=== PATIENT | female | born 1995 | race Caucasian/White ===

== ENCOUNTER 2019-05-16 06:17 | Inpatient (IN) ==
[2019-05-16] MEDS ORDERED: OXYTOCIN 30 UNITS/500 ML BAG IV PRN ×3 (06:47→16:50)
--- NOTE | 2019-05-16 06:54 | History & Physical Report ---
Date of Service May 16, 2019 Assessment & Plan (1) Normal labor: IUP at 39 weeks in active labor with elevated BP & proteinuria but no other PIH symptoms. will check PIH labs planning epidural analgesia anticipate vaginal History of Present Illness Primary Care Provider: Chan Sterling DO Patient is a 23 yo who presents with regular contractions since 0300 with bloody show. (-) SPROM GBS (-) uncomplicated but BP elevated to 140/90 initial assessment. 2+ proteinuria. N PIH symptoms. Allergies Allergy/AdvReac Type Severity Reaction Status Date / Time No Known Allergies Allergy Unverified 03/01/19 22:48 Home Medications Home Medications Medication Instructions Recorded Confirmed Type 1 tab PO DAILY 03/01/19 03/01/19 History Patient History Medical History [place] teeth extracted Surgical History Hx of tonsillectomy Family History Grandmother (Paternal) No problems noted. Grandmother (Maternal) Lung cancer Grandmother (Maternal) Breast cancer Social History marital status: Single Feels Safe at Home: Yes Smoking Status: Never smoker Hx Alcohol Use: No Hx Substance Use: No Review of Systems All systems reviewed & are unremarkable except as noted in HPI & below Physical Exam Constitutional: WD/WN, vitals as above Respiratory: normal respiratory effort, lungs clear to auscultation Cardiovascular: RRR, no murmur, no edema Gastrointestinal (Abdomen): normal bowel sounds, soft, nontender, no hepatosplenomegaly Musculoskeletal: +1 pedal edema Genitourinary: OB Exam Abdomen: + vertex, + estimated weight (6-7 pounds) and + regular contractions (every 5 minutes) Manual OB Exam: + cervical dilation 3 cm, + cervical effacement 100% and + station 0 OB Exam Monitor Tracing: + external FHT monitor used, + external uterine monitor used, + category I and + normal FHT variability Results & Data Vital Signs (Past 12 Hours) Vital Signs Pulse BP 05/16/19 06:50 70 158/102 H 05/16/19 06:35 71 149/97 H 05/16/19 06:27 71 144/92 H
[2019-05-16 07:15] LABS: Hematocrit (blood only) 35.8 % (37-47); Hemoglobin 11.6 g/dL (12.0-16.0); Mean Corpuscular Volume 85.2 fL (80-100); Mean Platelet Volume 9.4 fL (7.4-10.4); Platelet Count 331 K/uL (130-400); RDW Coefficient of Variation 14.1 % (11.5-14.5); RDW Standard Deviation 42.8 fL (36.4-46.3); White Blood Count 17.54 K/uL (4.8-10.8)
[2019-05-16 07:28] LABS: Mean Corpuscular Hgb Conc 32.4 g/dL (32-36)
[2019-05-16 07:30] LABS: Alanine Aminotransferase 20 U/L (12-78); Aspartate Aminotransferase 15 U/L (15-37); Creatinine Clr Calc Pharmacy 149.1 ml/min; Est GFR (African American) > 150.0; Est GFR (Non-African American) 133.3
[2019-05-16] MEDS: LACTATED RINGER'S 1,000 ML IV PRN ×3 (07:52→13:45)
--- NOTE | 2019-05-16 08:03 | Labor Progress Brief Note ---
Date of Service May 16, 2019 Subjective Change of shift note: 23yo G1P); at 38 (+) wks GA, admitted in early labor. Benign course. Initial BP elevated, (+)2 protein, PIH labs WNL Assessment & Plan (1) Normal labor: - tracing Cat I - pt relatively comfortable - asking to ambulate - will ambulate - monitor per protocol - Results & Data Vital Signs (Past 12 Hours) Vital Signs Temp Pulse Resp BP 05/16/19 07:55 67 140/81 05/16/19 07:39 77 133/73 05/16/19 07:23 36.8 C 64 18 150/88 H 05/16/19 06:50 70 158/102 H 05/16/19 06:35 71 149/97 H 05/16/19 06:30 37.0 C 71 18 149/97 H 05/16/19 06:27 71 144/92 H
--- NOTE | 2019-05-16 10:02 | Anesthesiology Consultation ---
Date of Service May 16, 2019 Assessment & Plan (1) Encounter for pre-operative examination: Chart Review Chart Review: Patient NOT seen in Pre Admission Testing and Acceptable Risk for Labor Epidural Consults Requested none ASA ASA2 Proposed Anesthesia Anesthesia Type: Labor Epidural Risk / Benefits Reviewed With: PT / POA / Parent / Guardian, Accepts Plan and Informed Consent Obtained History Height/Weight Height: 5 ft 2 in Weight: 73.482 kg Allergies Allergy/AdvReac Type Severity Reaction Status Date / Time No Known Allergies Allergy Verified 05/16/19 07:25 Medications Home Medications Medication Instructions Recorded Confirmed Last Taken 1 tab PO DAILY 03/01/19 05/16/19 1 Day Ago ~05/15/19 Active Medications Generic Name Dose Route Start Last Admin Trade Name Freq PRN Reason Stop Dose Admin Lactated Ringer's 1,000 mls @ 125 mls/hr 05/16/19 06:47 05/16/19 07:52 Lr IV 05/18/19 06:46 125 mls/hr .Q8H PRN Administration L&D Protocol Protocol NPO Date Last Intake of Fluids: 05/16/19 Time Last Intake of Fluids: 10:43 Date Last Intake of Solids: 05/16/19 Time Last Intake of Solids: 03:00 Past Medical History Medical History [place] teeth extracted Exercise / Class Metabolic Activity II 4-5 Yardwork/Stairs/Walk up hill Negative for chest pain or shortness of breath. Past Family History Family History Grandmother (Paternal) No problems noted. Grandmother (Maternal) Lung cancer Grandmother (Maternal) Breast cancer Past Surgical History Surgical History Hx of tonsillectomy Past Anesthesia History No Hx of Anesthesia Complications History of PONV No Hx of PONV and Hx of Motion Sickness Social History Smoking Status: Former smoker Do You Dip or Chew Tobacco: No Hx Alcohol Use: No Hx Substance Use: No substance use type: does not use Review of Systems Patient denies active symptoms of GERD. Patient denies numbness, tingling or weakness in lower extremities. Patient denies history of abnormal bleeding or bleeding disorder. Patient denies active use of anticoagulants other than low dose aspirin. Physical Exam Vital Signs Last Vital Signs Temp 36.8 C 05/16/19 07:23 Pulse 75 05/16/19 10:25 Resp 18 05/16/19 07:23 BP 144/85 H 05/16/19 10:25 Constitutional not obese (Gravid uterus) ENMT Mouth: no TMJ abnormality and oral opening not small Thyromental Distance: > or= 3.5 Finger Breadths Mallampati Class: I Neck normal visual inspection; neck extension not limited Respiratory normal respiratory effort Auscultation: lungs clear to auscultation bilaterally Cardiovascular Rate/Rhythm: regular rate and regular rhythm Heart Sounds: no murmur Neurologic moves all extremities Motor/Sensory: no sensory deficit Psychiatric Orientation: alert and oriented x 3 Testing Laboratory Results 05/16/19 07:01 05/16/19 07:01
[2019-05-16] MEDS ORDERED: BUPIVACAINE 0.25% 30 ML VIAL ONE (10:48)
[2019-05-16] MEDS ORDERED: ePHEDrine sulfate 50 MG/ML AMP ONE (10:48)
[2019-05-16] MEDS ORDERED: fentaNYL 2MCG/ML ROPIV 1.25MG/ML 100 ML BAG EPI ONE (10:49)
[2019-05-16] MEDS ORDERED: fentaNYL citrate 100 MCG/2 ML VIAL ONE (10:49)
--- NOTE | 2019-05-16 11:49 | Labor Progress Brief Note ---
Date of Service May 16, 2019 Subjective comfortable after epidural Assessment & Plan (1) Normal labor: - pt comfortable with epidural - will augment with pitocin - tracing Cat II Physical Exam Genitourinary: Cervix: 5/100/-1. AROM, mec Results & Data Vital Signs (Past 12 Hours) Vital Signs Temp Pulse Resp BP Pulse Ox 05/16/19 11:44 92 H 153/74 H 93 05/16/19 11:42 100 H 135/73 05/16/19 11:41 86 96 05/16/19 11:40 85 142/78 H 05/16/19 11:38 85 137/74 94 05/16/19 11:36 87 144/75 H 96 05/16/19 11:34 91 H 143/72 H 05/16/19 11:32 82 140/72 05/16/19 11:31 81 97 05/16/19 11:30 83 146/74 H 05/16/19 11:28 86 143/67 H 05/16/19 11:26 87 143/75 H 98 05/16/19 11:25 70 138/82 05/16/19 11:24 83 142/90 H 05/16/19 11:21 74 137/86 100 05/16/19 11:18 75 142/84 H 05/16/19 11:16 69 139/88 98 05/16/19 11:11 69 99 05/16/19 11:06 67 99 05/16/19 11:03 75 164/89 H 05/16/19 11:02 76 167/90 H 05/16/19 11:01 73 99 05/16/19 10:25 75 144/85 H 05/16/19 09:02 69 132/85 05/16/19 07:55 67 140/81 05/16/19 07:39 77 133/73 05/16/19 07:23 36.8 C 64 18 150/88 H 05/16/19 06:50 70 158/102 H 05/16/19 06:35 71 149/97 H 05/16/19 06:30 37.0 C 71 18 149/97 H 05/16/19 06:27 71 144/92 H
[2019-05-16] MEDS ORDERED: ONDANSETRON INJ 2 MG/ML 2 ML VIAL IV PRN (14:02)
[2019-05-16] MEDS ORDERED: fentaNYL 2MCG/ML ROPIV 1.25MG/ML 100 ML BAG EPI PRN (14:02)
[2019-05-16] MEDS ORDERED: NALOXONE HCL 1 MG in SODIUM CHLORIDE 0.9% 1000ML 1,000 ML IV PRN (14:02)
[2019-05-16] MEDS ORDERED: NALBUPHINE HCL INJ 10 MG/ML AMP IV PRN (14:02)
[2019-05-16] MEDS ORDERED: DiphenhydrAMINE HCL 50 MG/ML VIAL IV PRN (14:02)
[2019-05-16] MEDS ORDERED: NALOXONE HCL 0.4 MG/1 ML VIAL/CARP IV PRN (14:02)
[2019-05-16] MEDS ORDERED: ePHEDrine sulfate 50 MG/ML AMP IV PRN (14:02)
--- NOTE | 2019-05-16 14:53 | Labor Progress Brief Note ---
Date of Service May 16, 2019 Subjective comfortable with epidural Assessment & Plan (1) Normal labor: - intermittent decels with ctx's - accelerations with scalp stimulation - FSE applied - will try different maternal position - allow pitocin to continue for now Physical Exam Genitourinary: OB Exam Monitor Tracing: + category II, + normal FHT variability (accelerations with scalp stimulation) and + variable decelerations Cervix- 7/100/(+)1 Results & Data Vital Signs (Past 12 Hours) Vital Signs Temp Pulse Resp BP Pulse Ox 05/16/19 14:49 119 H 91 05/16/19 14:46 87 97 05/16/19 14:41 62 99 05/16/19 14:36 68 99 05/16/19 14:34 67 156/70 H 94 05/16/19 14:31 72 99 05/16/19 14:26 87 97 05/16/19 14:21 66 97 05/16/19 14:19 68 137/67 05/16/19 14:16 78 98 05/16/19 14:11 81 98 05/16/19 14:06 96 H 97 05/16/19 14:03 85 143/89 H 05/16/19 14:01 74 98 05/16/19 13:56 76 97 05/16/19 13:51 85 99 05/16/19 13:48 80 139/86 05/16/19 13:46 75 98 05/16/19 13:41 86 99 05/16/19 13:36 86 98 05/16/19 13:33 81 144/80 H 05/16/19 13:31 71 98 05/16/19 13:26 79 98 05/16/19 13:21 69 100 05/16/19 13:18 71 137/65 05/16/19 13:16 64 99 05/16/19 13:11 70 97 05/16/19 13:06 67 97 05/16/19 13:05 74 137/63 05/16/19 13:04 80 92 05/16/19 13:01 69 97 05/16/19 12:56 81 95 05/16/19 12:52 76 146/77 H 05/16/19 12:51 84 97 05/16/19 12:50 69 150/79 H 05/16/19 12:46 87 99 05/16/19 12:41 68 96 05/16/19 12:36 82 96 05/16/19 12:34 85 138/83 05/16/19 12:31 85 97 05/16/19 12:26 91 H 98 05/16/19 12:21 91 H 96 05/16/19 12:17 86 129/109 H 94 05/16/19 12:16 91 H 95 05/16/19 12:11 90 98 05/16/19 12:06 97 H 98 05/16/19 12:01 87 139/77 96 05/16/19 11:56 83 95 05/16/19 11:51 84 96 05/16/19 11:46 87 96 05/16/19 11:44 92 H 153/74 H 93 05/16/19 11:42 100 H 135/73 05/16/19 11:41 86 96 05/16/19 11:40 85 142/78 H 05/16/19 11:38 85 137/74 94 05/16/19 11:36 87 144/75 H 96 05/16/19 11:34 91 H 143/72 H 05/16/19 11:32 82 140/72 05/16/19 11:31 81 97 05/16/19 11:30 83 146/74 H 05/16/19 11:28 86 143/67 H 05/16/19 11:26 87 143/75 H 98 05/16/19 11:25 70 138/82 05/16/19 11:24 83 142/90 H 05/16/19 11:21 74 137/86 100 05/16/19 11:18 75 142/84 H 05/16/19 11:16 69 139/88 98 05/16/19 11:11 69 99 05/16/19 11:06 67 99 05/16/19 11:03 75 164/89 H 05/16/19 11:02 76 167/90 H 05/16/19 11:01 73 99 05/16/19 10:25 75 144/85 H 05/16/19 09:02 69 132/85 05/16/19 07:55 67 140/81 05/16/19 07:39 77 133/73 05/16/19 07:23 36.8 C 64 18 150/88 H 05/16/19 06:50 70 158/102 H 05/16/19 06:35 71 149/97 H 05/16/19 06:30 37.0 C 71 18 149/97 H 05/16/19 06:27 71 144/92 H
[2019-05-16] MEDS ORDERED: ACETAMINOPHEN 325 MG TAB PO PRN (16:50)
[2019-05-16] MEDS ORDERED: HYDROCORTISONE ACETATE 25 MG SUPP PR PRN (16:50)
[2019-05-16] MEDS ORDERED: DIPHTHERIA/TETANUS/PERTUSSIS 0.5 ML SYR/VIAL IM ONE (16:50)
[2019-05-16] MEDS ORDERED: BISACODYL 10 MG SUPP PR PRN (16:50)
[2019-05-16] MEDS ORDERED: BENZOCAINE 20% AER SPR 82.5 GM CAN EXT PRN (16:50)
[2019-05-16] MEDS ORDERED: SUPERCREAM 0.870% 15 GM JAR EXT PRN (16:50)
[2019-05-16 17:16] LABS: Base Excess Cord Arterial Bld -7.1 mEq/L (-9-1.8); CO2 Cord Arterial Blood 44 mmHg (39.1-73.5); HCO3 Cord Arterial Blood 20 mmol/L (19.7-28.5); pH Cord Arterial Blood 7.27 (7.1-7.38)
[2019-05-16 17:22] LABS: Base Excess Cord Venous Blood -7.7 mEq/L (-7.7-1.9); Cord Venous Blood HCO3 19 mmol/L (18.4-26.8); Cord Venous Blood PCO2 44 mmHg (30.4-57.2); Cord Venous Blood PO2 24 mmHg (14.1-43.3); Cord Venous Blood pH 7.26 (7.20-7.44)
[2019-05-16 17:25] LABS: Oxygen Sat Cord Arterial Blood < 60.0 % (<60)
[2019-05-16 17:26] LABS: O2 Saturation Cord Venous Bld < 60.0 % (<68)
--- NOTE | 2019-05-16 19:26 | Anesthesia Procedure Note ---
Date of Service May 16, 2019 Anesthesia Post Epidural Note Vital Signs Vital Signs: Temp Pulse Resp BP Pulse Ox 36.6 C 88 18 143/74 H 89 L 05/16/19 18:45 05/16/19 18:48 05/16/19 18:45 05/16/19 18:48 05/16/19 16:38 Notes Mental Status: alert / awake / arousable and participated in evaluation Nausea / Vomiting: adequately controlled Pain: adequately controlled Airway Patency, RR, SpO2: stable & adequate BP & HR: stable & adequate Hydration State: stable & adequate Neuraxial Anesthesia: was administered and sensory block is resolving Anesthetic Complications: no major complications apparent and Pt Satisfied with anesthetic care Epidural: Removed without complications and With tip intact Notes: Epidural site clean, dry and intact. No signs of edema, erythema or bruising at insertion site. Pt instructed to request anesthesia if she has residual lower extremity numbness or if she develops lower extremity pain or weakness, back pain or headache.
--- NOTE | 2019-05-16 20:21 | Delivery Summary ---
DATE OF OPERATION: 05/16/2019 PROCEDURE: Normal spontaneous vaginal delivery with first-degree laceration repair. SURGEON: Chadd Kwan MD PREOPERATIVE DIAGNOSES: 1. Single intrauterine at 39 weeks' gestational age. 2. Active labor. 3. Gestational hypertension. POSTOPERATIVE DIAGNOSES: 1. Single intrauterine at 39 weeks' gestational age. 2. Active labor. 3. Gestational hypertension. 4. Delivered. ESTIMATED BLOOD LOSS: 150 mL. DRAINS: None. FLUIDS: Continuous lactated Ringer. URINE OUTPUT: Not measured. COMPLICATIONS: None. FINDINGS: Viable male infant with weight pending and Apgars of 7 and 9 at 1 and 5 minutes respectively. INDICATIONS: Ms. Vanegas is a 23-year-old G1, P0. She is admitted at 39+ weeks gestational age in labor. On first evaluation, patient was found to be 3 cm dilated, 100% effaced and 0 station. On recheck, the patient was found to be 5 cm dilated, 100% effaced, -1 station. Patient underwent artificial rupture of membranes for meconium and was started on oxytocin per regular protocol. She received an epidural for anesthesia and progressed in labor to complete-complete -1 station, at which time she began to push. During the labor course, the oxytocin was stopped x1 secondary to decelerations. DESCRIPTION OF PROCEDURE: The patient progressed to 10 cm dilated, 100% effaced, -1 station, pushed over intact perineum with epidural anesthesia and delivered a viable male with the weight and Apgars as noted above. Head of the delivered in FATMATA position and restituted to left transverse. Nuchal cord x1 was noted which was easily reduced. Body and shoulders quickly followed. The was delivered to the maternal abdomen and was noted to be vigorous approximately 30 seconds after delivery. A 1-minute delayed cord clamping was initiated, after which the cord was doubly clamped and cut and the was kept on the maternal abdomen. Cord segment and cord blood were obtained. Attention was then turned to the delivery of placenta which was delivered intact with 3-vessel cord with gentle cord traction. Inspection of the perineum, vagina and cervix showed a first-degree perineal laceration and a left labial laceration. The perineal laceration was repaired with a single continuous running stitch of 3-0 Vicryl. The labial laceration was repaired with a single interrupted stitch. Needle, sponge and instrument counts were correct at the completion of the case. Both mother and were stable in the immediate post-delivery period. I attest to the content of the Intraoperative Record and any orders documented therein. Any exceptions are noted below. MTDD
[2019-05-16] MEDS: DOCUSATE SODIUM 100 MG CAP PO SCH (20:27)
--- NOTE | 2019-05-17 07:27 | Obstetrical Progress Note ---
Date of Service <Jerson Lr DO - Last Filed: 05/17/19 07:27> May 17, 2019 Assessment & Plan <Jerson Lr DO - Last Filed: 05/17/19 07:27> (1) (spontaneous vaginal delivery): -vital signs reviewed and WNL -Blood type: A-, GBS-, Rubella Immune -pt doing well clinically -encourage ambulation, monitor and control pain with motrin tylenol, cont regular diet, monitor lochia -cont encourage bottle feeding -anticipate d/c tomorrow Subjective <Jerson Lr DO - Last Filed: 05/17/19 07:27> 23 y/o PPD1 found in bed this morning in NAD. Reports no acute overnight events. Pt states that she has no pain other than appropriate soreness. States sore bottom. Tolerating PO intake without N/V. Able to ambulate, but takes a little longer given bottom pain. She is bottle feeding without issue. No issues with voiding, no BM yet but passing gas. No other acute concerns or complaints. Review of Systems All systems reviewed & are unremarkable except as noted in HPI & below Physical Exam <Jerson Lr DO - Last Filed: 05/17/19 07:27> Constitutional WD/WN, vitals as above Respiratory normal respiratory effort, lungs clear to auscultation Cardiovascular RRR, no murmur, no edema Gastrointestinal (Abdomen) mild abd tenderness Skin no rashes, warm and dry Psychiatric A+Ox3, euthymic affect Lymphatic no LE swelling, no calf tenderness Results & Data <Jerson Lr DO - Last Filed: 05/17/19 07:27> Vital Signs (Past 12 Hours) Vital Signs Temp Pulse Resp BP Pulse Ox 05/17/19 04:00 36.7 C 90 16 119/66 98 05/17/19 00:00 36.6 C 85 16 141/70 H 97 05/16/19 20:00 36.7 C 87 18 147/89 H Laboratory Results Laboratory Results - last 24 hr 05/16/19 05/16/19 05/16/19 07:01 07:01 16:36 MCHC 32.4 Cord ABG pH Cord ABG pCO2 Cord ABG pO2 Cord ABG HCO3 Cord ABG Base Excess Cord ABG O2 Sat Cord VBG pH 7.26 Cord VBG pCO2 44 Cord VBG pO2 24 Cord VBG HCO3 19 Cord VBG Base Excess -7.7 Cord VBG O2 Sat < 60.0 Barometric Pressure 734.9 Blood Gas Comments [place] Creatinine 0.56 L Est Cr Clr Drug Dosing 149.1 Est GFR ( Amer) > 150.0 Est GFR (Non-Af Amer) 133.3 AST 15 ALT 20 05/16/19 16:36 MCHC Cord ABG pH 7.27 Cord ABG pCO2 44 Cord ABG pO2 24.0 Cord ABG HCO3 20 Cord ABG Base Excess -7.1 Cord ABG O2 Sat < 60.0 Cord VBG pH Cord VBG pCO2 Cord VBG pO2 Cord VBG HCO3 Cord VBG Base Excess Cord VBG O2 Sat Barometric Pressure 734.9 Blood Gas Comments INFANT A Creatinine Est Cr Clr Drug Dosing Est GFR ( Amer) Est GFR (Non-Af Amer) AST ALT Medications Administered Current Inpatient Medications Acetaminophen (Tylenol) 650 mg PO Q6H PRN PRN Reason: Pain/HIGHTOWER/Fever Stop: 06/15/19 16:49 Benzocaine (Dermoplast Pain Relieving [place]) 1 appln EXT PRN PRN PRN Reason: Perineal Discomfort Stop: 06/15/19 16:49 Bisacodyl (Dulcolax) 5 mg PO 1999 [facility] Stop: 05/17/19 20:01 Bisacodyl (Dulcolax) 10 mg CO DAILY PRN PRN Reason: No BM on 2nd post- day Stop: 06/15/19 16:49 Cocaine HCl (Supercream 0.870%) 1 gm EXT BID PRN PRN Reason: Hemorrhoidal Inflammation Stop: 05/30/19 16:49 Docusate Sodium (Colace) 100 mg PO DAILY@08,21 [facility] Stop: 06/15/19 20:59 Last Admin: 05/16/19 20:27 Dose: 100 mg Documented by: Hydrocortisone (Anusol Hc) 25 mg CO BID PRN PRN Reason: Hemorrhoidal Inflammation Stop: 06/15/19 16:49 Lactated Ringer's (Lr) 1,000 mls @ 125 mls/hr IV .Q8H PRN; Protocol PRN Reason: L&D Protocol Stop: 05/18/19 06:46 Last Infusion: 05/17/19 07:18 Dose: Infused Documented by: Oxytocin (Pitocin) 30 units in 500 mls @ 333.333 mls/hr IV .Q1H30M PRN; Protocol PRN Reason: Bleeding Control Stop: 06/15/19 06:46 Oxytocin (Pitocin) 30 units in 500 mls @ 0 mls/hr IV .Q0M PRN; Protocol PRN Reason: Labor Induction/Augmentation Stop: 05/18/19 08:04 Last Titration: 05/16/19 17:15 Dose: Infused Documented by: Ibuprofen (Motrin) 600 mg PO Q4H PRN PRN Reason: Pain/HIGHTOWER/Cramping/Fever Stop: 06/15/19 16:49 Prenat Multivit/[facility]/Iron/Folic Ac ( Vitamin) 1 tab PO DAILY@08 [place] Stop: 06/16/19 07:59 <Chadd Kwan MD - Last Filed: 05/17/19 08:13> Co-Signing Physician Notes Patient seen and evaluated and agree with the above findings and plan. Stable for discharge Resident Activity Tracking <Jerson Lr DO - Last Filed: 05/17/19 07:27> Resident Involvement: Resident Care Provided Care Provided: OB Delivery
[2019-05-17] MEDS: PRENATAL VITAMIN 1 TAB PO SCH (07:51)
[2019-05-17] MEDS: DOCUSATE SODIUM 100 MG CAP PO SCH ×2 (07:51→20:13)
[2019-05-17 08:00] LABS: Hematocrit (blood only) 33.7 % (37-47)
[2019-05-17] MEDS: IBUPROFEN 600 MG TAB PO PRN ×2 (08:10→21:38)
[2019-05-17] MEDS ORDERED: BISACODYL 5 MG TABEC PO SCH (20:00)
--- NOTE | 2019-05-18 07:41 | Obstetrical Progress Note ---
Date of Service May 18, 2019 Assessment & Plan (1) (spontaneous vaginal delivery): - doing well - BP's still mildly elevated - pt desires d/c - will d/c home to f/u in 72 hours for BP check in office Subjective Ambulation: ambulating normally Feeding Type:: bottle feeding Physical Exam Gastrointestinal (Abdomen) Fundus firm below U Musculoskeletal (-) deep calf tenderness Results & Data Vital Signs (Past 12 Hours) Vital Signs Temp Pulse Resp BP BP Pulse Ox 05/17/19 23:45 36.4 C L 80 16 141/89 H 98 05/17/19 21:30 78 142/89 H 05/17/19 20:05 36.7 C 88 18 144/102 H 99
[2019-05-18] MEDS: DOCUSATE SODIUM 100 MG CAP PO SCH (08:19)
[2019-05-18] MEDS: PRENATAL VITAMIN 1 TAB PO SCH (08:19)
[2019-05-18] MEDS: IBUPROFEN 600 MG TAB PO PRN (08:20)
== END 2019-05-18 10:40 | disposition home or self-care (01) | DRG 807 ==
LOC: OPB 06:17 → 4S1 06:19 → 4S2 19:33

== ENCOUNTER 2021-09-15 02:04 | Inpatient (IN) ==
[2021-09-15] MEDS ORDERED: LACTATED RINGER'S 1,000 ML IV SCH (02:45)
[2021-09-15] MEDS ORDERED: OXYTOCIN 30 UNITS/500 ML BAG IV PRN ×2 (02:45→05:09)
[2021-09-15] MEDS ORDERED: SODIUM CHLORIDE 0.9% INJ 10 ML VIAL ONE (02:58)
[2021-09-15] MEDS ORDERED: BUPIVACAINE 0.25% 30 ML VIAL ONE (02:58)
[2021-09-15] MEDS ORDERED: ePHEDrine sulfate 50 MG/ML AMP ONE (02:58)
[2021-09-15] MEDS ORDERED: fentaNYL citrate 100 MCG/2 ML VIAL ONE (02:59)
[2021-09-15] MEDS ORDERED: fentaNYL 2MCG/ML ROPIVACAINE 1.25MG/ML 100 ML BAG EPI ONE (02:59)
[2021-09-15] MEDS ORDERED: ONDANSETRON INJ 2 MG/ML 2 ML VIAL ONE (03:53)
[2021-09-15] MEDS ORDERED: SUPERCREAM 0.870% 15 GM JAR EXT PRN (05:09)
[2021-09-15] MEDS ORDERED: BENZOCAINE 20% AER SPR 82.5 GM CAN EXT PRN (05:09)
[2021-09-15] MEDS ORDERED: DIPHTHERIA/TETANUS/PERTUSSIS 0.5 ML SYR/VIAL IM ONE (05:09)
[2021-09-15] MEDS ORDERED: bisacodyL 10 MG SUPP PR PRN (05:09)
[2021-09-15] MEDS ORDERED: ACETAMINOPHEN 325 MG TAB PO PRN (05:09)
--- NOTE | 2021-09-15 05:13 | Delivery Summary ---
Vaginal Delivery Summary Date of Service September 15, 2021 Vaginal Delivery Summary and 3rd Degree LAC Pre-operative Diagnosis: at 39 weeks labor Post-operative Diagnosis: same meconium stained fluid 3rd degree laceration Procedure: epidural third degree laceration and repair EBL: 400cc Anesthesia: epidural Procedure: The patient presented to labor and delivery in active labor at 7cm. She received and epidural. She had srom for particulate mec. The patient pushed x3 to deliver a viable male in tanya position. The nose and mouth were bulb suctioned on the perineum and the rest of the was then delivered without difficulty. Green mec noted with delivery. There was a nuchal arm. The baby was vigorous. The nose and mouth were again bulb suctioned and the infant was placed in the maternal abdomen for drying and attention. Cord was clamped and cut at one minute of life. Cord blood and segment obtained. Placenta delivered spontaneous, intact with a three vessel cord. Cervix/sulci/rectum were intact. A third degree perineal laceration was repaired in the normal standard fashion by grasping the sphincter with allis clamps and placing 4 2-0 vicryl sutures. Hemostasis obtained with dilute pitocin and fundal massage. Apgars were 9/9. Mother and baby doing well at the end of the delivery. [facility] Vaginal Delivery Charge Delivery Type Details: and 3rd Degree LAC
[2021-09-15 05:15] LABS: Hematocrit (blood only) 35.9 % (37-47); Hemoglobin 11.5 g/dL (12.0-16.0); Mean Corpuscular Hemoglobin 27.4 pg (25-34); Mean Corpuscular Volume 85.7 fL (80-100); Mean Platelet Volume 9.1 fL (7.4-10.4); Platelet Count 312 K/uL (130-400); RDW Coefficient of Variation 13.8 % (11.5-14.5); RDW Standard Deviation 42.9 fL (36.4-46.3); Red Blood Count 4.19 M/uL (4.2-5.4); White Blood Count 15.08 K/uL (4.8-10.8)
[2021-09-15] MEDS ORDERED: LACTATED RINGER'S 1,000 ML IV PRN (05:58)
--- NOTE | 2021-09-15 06:54 | Anesthesia Procedure Note ---
Date of Service September 15, 2021 Anesthesia Post Epidural Note Vital Signs Vital Signs: Temp Pulse Resp BP Pulse Ox 97.3 F L 78 20 122/73 90 09/15/21 06:18 09/15/21 06:49 09/15/21 04:50 09/15/21 06:49 09/15/21 05:12 Pain Intensity Bilateral Abdomen: Pain Intensity: 7 Notes Mental Status: alert / awake / arousable and participated in evaluation Nausea / Vomiting: adequately controlled Pain: adequately controlled Airway Patency, RR, SpO2: stable & adequate BP & HR: stable & adequate Hydration State: stable & adequate Neuraxial Anesthesia: was administered and sensory block is resolving Anesthetic Complications: no major complications apparent and Pt Satisfied with anesthetic care Epidural: Removed without complications and With tip intact
--- NOTE | 2021-09-15 07:14 | Anesthesiology Consultation ---
Date of Service September 15, 2021 Assessment & Plan ASA ASA2 Proposed Anesthesia Anesthesia Type: Labor Epidural Risk / Benefits Reviewed With: PT / POA / Parent / Guardian, Accepts Plan and Informed Consent Obtained Additional Comments: downtime prevented documentation earlier History Height/Weight Height: 5 ft 3 in Weight: 74.843 kg Allergies Allergy/AdvReac Type Severity Reaction Status Date / Time No Known Allergies Allergy Verified 09/09/21 08:10 Medications Home Medications Medication Instructions Recorded Confirmed Last Taken prenat.vits,benny,[id number] 1 tab PO DAILY 06/17/19 09/15/21 08/31/21 Active Medications Generic Name Dose Route Start Last Admin Trade Name Freq PRN Reason Stop Dose Admin Oxytocin 30 units in 500 mls @ 333.333 mls/hr 09/15/21 05:09 09/15/21 06:00 Pitocin IV 10/15/21 05:08 Infused .Q1H30M PRN Titration Bleeding Control Protocol 20 UNITS/HR Lactated Ringer's 1,000 mls @ 125 mls/hr 09/15/21 02:45 09/15/21 06:16 Lr IV 10/15/21 02:44 Infused .Q8H [place] Infusion Lactated Ringer's 1,000 mls @ 999 mls/hr 09/15/21 05:58 09/15/21 05:05 Lr IV 10/15/21 05:57 Infused .Q1H1M PRN Infusion FOR EPIDURAL Past Medical History Medical History (Updated 09/14/21 @ 12:23 by Wendy Garcia MD, FACOG) Varicella vaccination Exercise / Class Metabolic Activity II 4-5 Yardwork/Stairs/Walk up hill Past Family History Family History Grandmother (Maternal) Lung cancer Grandmother (Maternal) Breast cancer Denies family history of Ovarian cancer Colorectal cancer Past Surgical History Surgical History Hx of tonsillectomy [place] teeth extracted Past Anesthesia History No Hx of Anesthesia Complications and No Family Hx of Anesthesia Complications History of PONV No Hx of PONV and No Hx of Motion Sickness Social History Smoking Status: Former smoker Hx Alcohol Use: No Hx Substance Use: No substance use type: does not use Last Used Substance: Just Prior to Arrival Review of Systems denies fever/cough/ colds/ chest pain/ SOB/ ELENA denies ELENA Physical Exam Vital Signs Last Vital Signs Temp 36.3 C L 09/15/21 06:18 Pulse 71 09/15/21 07:03 Resp 20 09/15/21 04:50 BP 134/68 09/15/21 07:03 Pulse Ox 90 09/15/21 05:12 ENMT Mouth: no TMJ abnormality and no dentition abnormality Thyromental Distance: > or= 3.5 Finger Breadths Mallampati Class: II Neck neck extension not limited Respiratory normal respiratory effort; no respiratory distress Auscultation: lungs clear to auscultation bilaterally Cardiovascular Rate/Rhythm: regular rate and regular rhythm Neurologic moves all extremities Psychiatric Orientation: alert and oriented x 3 Testing Laboratory Results 09/15/21 03:03 Blood Type A Negative 09/15/21 03:03
[2021-09-15] MEDS ORDERED: PRENATAL VITAMIN 1 TAB PO SCH (08:00)
[2021-09-15] MEDS: IBUPROFEN 600 MG TAB PO PRN ×3 (10:56→23:59)
[2021-09-15] MEDS: DOCUSATE SODIUM 100 MG CAP PO SCH (19:04)
[2021-09-15] MEDS: oxyCODONE/ACETAMINOPHEN 5mg/325mg TAB PO PRN (20:35)
[2021-09-16 06:02] LABS: Hematocrit (blood only) 31.8 % (37-47); Hemoglobin 9.9 g/dL (12.0-16.0)
--- NOTE | 2021-09-16 06:39 | Obstetrical Progress Note ---
Date of Service <Sally AlyDO - Last Filed: 09/16/21 07:06> September 16, 2021 Assessment & Plan <Sally JermainDO - Last Filed: 09/16/21 07:06> (1) care and examination: 26 yo postpartumday1 [address] [facility] , doing well. -Continue routine post care. -vital signs reviewed and WNL (Tmax 36.8) -Blood Type A- recieved rhogam, GBS-, Rubella Immune -Encourage ambulation, monitor and control pain with Motrin, tylenol PRN, resume regular diet, monitor lochia -encourage bottle feeding -hemoglobin 9.9 -patient comfortable with leaving today Day #:: 1 <Ilya Godfrey MD, FACOG - Last Filed: 09/16/21 07:14> (1) care and examination: Subjective <Sally JermainDO - Last Filed: 09/16/21 07:06> Ambulation: ambulating normally Voiding: no voiding problems Passing Gas:: Yes Diet Tolerance:: regular diet Lochia:: Small Feeding Type:: bottle feeding Current Pain Level(1-10): 3 Review of Systems Denies fever, chills, sweats Denies shortness of breath, difficulty breathing, chest pain, palpitations, chest pressure. Denies breast pain. Denies dysuria. Denies headache or changes in vision. Physical Exam <Sally JermainDO - Last Filed: 09/16/21 07:06> General: Alert, oriented. No acute distress. Cardiac: Regular rate and rhythm, no murmurs/rubs/gallops. Respiratory: Clear to auscultation bilaterally a/p, no wheezes/rales/rhonchi. No increased work of breathing. Symmetrical chest rise. No respiratory distress. Abdomen: Soft, nontender, nondistended. Bowel sounds present. Uterus: Uterine fundus firm, palpable at umbilicus. Lower Extremities: No lower extremity edema or swelling. No deep calf pain. Antonella's negative bilaterally.. Results & Data ([facility]) <Sallydiana Aly DO - Last Filed: 09/16/21 07:06> Vital Signs (Past 12 Hours) Vital Signs Temp Pulse Resp BP 09/15/21 23:55 36.8 C 79 18 145/75 H 09/15/21 20:20 37.1 C 71 18 136/81 <Ilya Godfrey MD, FACOG - Last Filed: 09/16/21 07:14> Co-Signing Physician Notes Resident Physician Supervision Note: I interviewed and examined the patient. Discussed with Dr. Aly and agree with findings and plan as documented in the note. Any exceptions or clarifications are listed here: [None] Documented By: Ilya Godfrey MD, FACOG Resident Activity Tracking <Sally Aly DO - Last Filed: 09/16/21 07:06> Resident Involvement: Resident Care Provided Care Provided: OB Delivery
[2021-09-16] MEDS: IBUPROFEN 600 MG TAB PO PRN ×2 (07:28→12:11)
[2021-09-16] MEDS: oxyCODONE/ACETAMINOPHEN 5mg/325mg TAB PO PRN ×2 (07:28→12:11)
[2021-09-16] MEDS: DOCUSATE SODIUM 100 MG CAP PO SCH (08:04)
[2021-09-16] MEDS ORDERED: bisacodyL 5 MG TABEC PO SCH (20:00)
== END 2021-09-16 12:00 | disposition home or self-care (01) | DRG 768 ==
LOC: OPB 02:04 → 4S1 02:05 → 4S2 08:58